=== PATIENT | male | born 1980 | race African-American/Black ===

== ENCOUNTER 2025-02-19 19:17 | Emergency (ER) | payer SELFPAY ==
[~2025-02-19] VITALS: Ht 175.3 cm; Wt 210.0 kg
[2025-02-19 19:44] VITALS: O2SAT 98
[2025-02-19 20:23] LABS: BASOPHILS % 1.1 % (0.0-2.0); EOSINOPHILS % 3.2 % (0.0-5.0); HEMATOCRIT. 42.8 % (42.0-52.0); HEMOGLOBIN. 14.1 g/dL (14.0-18.0); LYMPHOCYTES % 43.0 % (20.0-50.0); MEAN PLATELET VOLUME 9.3 fl (7.4-10.4); MONOCYTES % 5.4 % (2.0-8.0); NEUTROPHILS % 47.3 % (40.0-76.0); PLATELET 276 x1000/uL (130-400); RED BLOOD CELL COUNT 5.06 mill/uL (4.7-6.1); RED CELL DISTRIBUTION WIDTH 15.3 % (11.6-14.6)
[2025-02-19 20:37] LABS: CREATININE 1.5 mg/dL (0.6-1.3); UREA NITROGEN BLOOD 14 mg/dL (9-23)
[2025-02-19 21:10] VITALS: BP 155/86; PULSE 82; RESP 18; TEMP 36.9; O2SAT 100
[2025-02-19 21:16] LABS: CLARITY URINE CLEAR (CLEAR); COLOR URINE YELLOW (YELLOW); GLUCOSE URINE NEGATIVE (NEGATIVE); KETONES URINE NEGATIVE (NEGATIVE); LEUKOCYTE ESTERASE URINE NEGATIVE (NEGATIVE); NITRITE URINE NEGATIVE (NEGATIVE); OCCULT BLOOD URINE NEGATIVE (NEGATIVE); PH URINE 5.5 (4.5-8.0); PROTEIN URINE NEGATIVE (NEGATIVE); SPECIFIC GRAVITY URINE 1.021 (1.005-1.030); UROBILINOGEN URINE 0.2 E.U./dL (0.2-1.0)
[2025-02-19 21:25] LABS: ETHANOL BLOOD < 10 mg/dL (<10)
[2025-02-19 21:27] LABS: ASPARTATE AMINOTRANSFERASE 31 IU/L (<34); BILIRUBIN DIRECT < 0.1 mg/dL (<=3.0); BILIRUBIN TOTAL 0.2 mg/dL (0.1-1.0); PROTEIN TOTAL 8.3 g/dL (6.0-8.3)
[2025-02-19 21:33] LABS: *AMPHETAMINES SCREEN URINE NEGATIVE (NEGATIVE); *BARBITURATES SCREEN URINE NEGATIVE (NEGATIVE); *BENZODIAZEPINES SCREEN URINE NEGATIVE (NEGATIVE); *COCAINE SCREEN URINE NEGATIVE (NEGATIVE); CANNABINOID URINE SCREEN NEGATIVE (NEGATIVE); ECSTASY MDMA SCREEN URINE NEGATIVE (NEGATIVE); METHADONE URINE SCREEN NEGATIVE (NEGATIVE); OPIATES URINE SCREEN NEGATIVE (NEGATIVE); PHENCYCLIDINE URINE SCREEN NEGATIVE (NEGATIVE)
== END 2025-02-19 21:00 | disposition left against medical advice (07) ==
LOC: ER 19:17
DX: R10.9 Unspecified abdominal pain (principal); Z53.21 Procedure and treatment not carried out due to patient leaving prior to being seen by health care provider; Z79.899 Other long term (current) drug therapy
CPT/HCPCS: 36415; 80048; 80076; 80305; 80320; 81003; 85025; 99283; G0480

== ENCOUNTER 2025-02-20 01:17 | Inpatient (IN) | payer OTHER ==
[~2025-02-20] VITALS: Ht 175.3 cm; Wt 96.2 kg
[2025-02-20 01:49] LABS: BASOPHILS % 0.8 % (0.0-2.0); EOSINOPHILS % 3.4 % (0.0-5.0); HEMATOCRIT. 40.3 % (42.0-52.0); HEMOGLOBIN. 13.7 g/dL (14.0-18.0); LYMPHOCYTES % 48.8 % (20.0-50.0); MEAN PLATELET VOLUME 9.2 fl (7.4-10.4); MONOCYTES % 6.4 % (2.0-8.0); NEUTROPHILS % 40.6 % (40.0-76.0); PLATELET 268 x1000/uL (130-400); RED BLOOD CELL COUNT 4.81 mill/uL (4.7-6.1); RED CELL DISTRIBUTION WIDTH 14.9 % (11.6-14.6)
[2025-02-20 01:59] LABS: CLARITY URINE CLEAR (CLEAR); COLOR URINE YELLOW (YELLOW); GLUCOSE URINE NEGATIVE (NEGATIVE); KETONES URINE NEGATIVE (NEGATIVE); LEUKOCYTE ESTERASE URINE NEGATIVE (NEGATIVE); NITRITE URINE NEGATIVE (NEGATIVE); OCCULT BLOOD URINE NEGATIVE (NEGATIVE); PH URINE 5.5 (4.5-8.0); PROTEIN URINE NEGATIVE (NEGATIVE); SPECIFIC GRAVITY URINE 1.003 (1.005-1.030); UROBILINOGEN URINE 0.2 E.U./dL (0.2-1.0)
[2025-02-20 02:18] LABS: CREATININE 1.4 mg/dL (0.6-1.3); UREA NITROGEN BLOOD 13 mg/dL (9-23)
[2025-02-20 02:20] LABS: ASPARTATE AMINOTRANSFERASE 29 IU/L (<34); BILIRUBIN DIRECT < 0.1 mg/dL (<=3.0); BILIRUBIN TOTAL 0.3 mg/dL (0.1-1.0); PROTEIN TOTAL 8.0 g/dL (6.0-8.3)
[2025-02-20] MEDS: MORPHINE SULFATE 4 MG/ML INJ (FOR IV/IM USE) IV ONE (03:49)
[2025-02-20] MEDS: PIPERACILLIN/TAZO 3.375G/50ML 50 ML IV ONE (03:50)
[2025-02-20] MEDS: SODIUM CHLORIDE 0.9% 1,000 ML IV ONE (03:51)
[2025-02-20] MEDS: ONDANSETRON HCL 4MG/2ML INJ IV ONE (03:51)
[2025-02-20 07:41] VITALS: BP 133/86; PULSE 82; RESP 20; TEMP 36.3068
[2025-02-20 08:00] VITALS: BP 120/67; PULSE 75; RESP 18; TEMP 36.3; O2SAT 98
[2025-02-20] MEDS ORDERED: ACETAMINOPHEN 325MG TABLET PO PRN (09:15)
[2025-02-20] MEDS ORDERED: ONDANSETRON HCL 4MG/2ML INJ IV PRN (09:15)
[2025-02-20] MEDS: KETOROLAC 30MG/ML VIAL IV PRN (11:17)
[2025-02-20 12:00] VITALS: BP 153/92; PULSE 70; RESP 18; TEMP 36.4; O2SAT 100
[2025-02-20 16:00] VITALS: BP 158/79; PULSE 73; RESP 18; TEMP 36.6; O2SAT 100
[2025-02-20 20:00] VITALS: BP 137/91; PULSE 73; RESP 18; TEMP 36.3; O2SAT 98
[2025-02-21 08:00] VITALS: BP 147/84; PULSE 61; RESP 18; TEMP 36.5; O2SAT 98
[2025-02-21 12:00] VITALS: BP 107/58; PULSE 65; RESP 17; TEMP 36.6; O2SAT 99
[2025-02-21 12:45] VITALS: BP 107/58; PULSE 65; TEMP 97.8; O2SAT 99
== END 2025-02-21 14:10 | disposition home or self-care (01) | DRG 391 ==
LOC: ER 01:17 → 6EST 03:47 → EDBEDREQTM 03:50 → EDBEDREQ 03:50 → ENRESERV 04:10
PROVIDERS: ADMIT Internal Medicine; ATTEND Internal Medicine
DX: K52.9 Noninfective gastroenteritis and colitis, unspecified (principal); N17.0 Acute kidney failure with tubular necrosis; K57.32 Diverticulitis of large intestine without perforation or abscess without bleeding; E66.9 Obesity, unspecified; J45.909 Unspecified asthma, uncomplicated; Z79.899 Other long term (current) drug therapy; Z87.442 Personal history of urinary calculi; Z90.49 Acquired absence of other specified parts of digestive tract; Z68.31 Body mass index [BMI] 31.0-31.9, adult
CPT/HCPCS: 36415; 74176; 80048; 80076; 81003; 83605; 85025; 93005; 99285; A4606; J1885; J2270; J2405; J2543; J7030